=== PATIENT | male | born 1990 | race African-American/Black ===

== ENCOUNTER 2021-08-31 18:51 | Emergency (ER) | payer OTHER ==
[~2021-08-31] VITALS: Ht 185.4 cm; Wt 70.3 kg
[2021-08-31] MEDS ORDERED: NAPROSYN500 MG PO (19:59)
[2021-08-31] MEDS ORDERED: CYCLOBENZAPRINE10 MG PO (20:00)
== END 2021-08-31 21:30 | disposition home or self-care (01) ==
LOC: FSED 18:55
DX: S39.012A Strain of muscle, fascia and tendon of lower back, initial encounter (principal); R07.89 Other chest pain; V43.62XA Car passenger injured in collision with other type car in traffic accident, initial encounter; Y92.488 Other paved roadways as the place of occurrence of the external cause
CPT/HCPCS: 99282